=== PATIENT | male | born 1945 | race Asian ===

== ENCOUNTER 2024-03-26 06:30 | Day surgery (SDC) | payer OTHER, SELFPAY ==
[2024-03-12 08:25] VITALS: BMI 20.8
[2024-03-12 08:52] LABS: Hematocrit 41.8 % (39.0-52.0); Hemoglobin 14.6 g/dL (13.0-18.0); Mean Corp Hgb Conc. 34.9 g/dL (33.0-37.0); Mean Corpuscular Hgb 33.8 pg (27.0-31.0); Mean Corpuscular Volume 96.8 fL (80.0-94.0); Platelet Count 174 10^3/uL (130-400); Red Blood Cell Count 4.32 10^6/uL (4.70-6.10); Red Cell Dist. Width 12.3 % (11.5-14.5); White Blood Cell Count 5.1 10^3/uL (4.8-10.8)
[2024-03-12 09:20] LABS: Blood Urea Nitrogen 21 mg/dl (9-20); Calcium 9.7 mg/dl (8.4-10.2); Carbon Dioxide 28 mmol/L (22-30); Chloride 103 mmol/L (98-107); Estimated Creatinine Clearance 58 ml/min; Glucose 90 mg/dl (70-99); Potassium 4.2 mmol/L (3.5-5.1); Sodium 144 mmol/L (135-145); eGFR > 60.00
[2024-03-26] VITALS (8 sets, daily range): BP systolic 100–141; BP diastolic 57–83; BMI 20.8
[2024-03-26] MEDS: TYLENOL 1000 MG PO (12:30)
--- NOTE | 2024-03-26 12:55 | W.SUR.PREOP ---
Pre-Operative Surgical Note
-
I have examined this patient prior to the performance of the scheduled procedure.
The patient's condition is unchanged from the time of the current History and
Physical and the patient is able to undergo the scheduled procedure.
--- NOTE | 2024-03-26 15:27 | W.IMMPOSTOP ---
Addendum entered and electronically signed by Michi Majano MD 03/27/24 18:11:
#[id number]
Original Note:
Surgical Immed Post Op Note
-
Primary Surgeon: Melecio
Assisting Surgeon: Judy Maloney
Pre-op Diagnosis: Bilateral inguinal hernias
Post-op Diagnosis: Bilateral inguinal hernias; direct
Procedure Performed: Laparoscopic TEP repair bilateral inguinal hernias with mesh; 3D max large mid weight x 2
Anesthesia Type: GETA +0.25% Marcaine
Specimen / Cultures: None
Estimated Blood Loss: 8 mL
Complications: None immediate
Operative Findings: Right inguinal hernia, direct, larger side. Left inguinal hernia, direct and smaller indirect component. No significant lipomas identified. Small area of peritoneal entry overlying the right vas deferens. Peritoneum closed
with hemoclips. 3D max large mid weight mesh repair x 2. Each mesh secured to Hamzah's ligament and towards not to pubic symphysis with Capsure tack x 2.
The assistance of Judy Amin PA-C was required due to the complexity of the procedure. During the procedure Judy Amin PA-C assisted with managing laparoscopic camera and assistance with closure of the surgical incision sites. I was present for
the entirety of the operative procedure.
== END 2024-03-26 16:37 | disposition home or self-care (01) ==
LOC: SDS 06:30
PROVIDERS: ATTENDING PHYSICIAN Surgery; FAMILY PHYSICIAN Family Medicine
DX: K40.20 Bilateral inguinal hernia, without obstruction or gangrene, not specified as recurrent (principal)
CPT/HCPCS: 49650; 36415; 80048; 85027; 93005; C1781